=== PATIENT | female | born 1950 | race Caucasian/White ===

== ENCOUNTER 2018-01-01 09:10 | Inpatient (IN) | payer MEDICARE, OTHER ==
[~2018-01-01] VITALS: Ht 152.4 cm; Wt 68.1 kg
[2018-01-01 10:45] VITALS: BP 108/61
[2018-01-01] MEDS ORDERED: PLEASE ENTER ALLERGIES MC SCH (11:30)
[2018-01-01] MEDS ORDERED: GUAIFENESIN/DM 200-20MG, 10ML UDC PO PRN (11:30)
[2018-01-01] MEDS ORDERED: ONDANSETRON ODT 4 MG PO PRN (11:30)
[2018-01-01] MEDS ORDERED: POLYETHYLENE GLYCOL 17 GM PACKET PO PRN (11:30)
[2018-01-01] MEDS ORDERED: DOCUSATE 100 MG CAPSULE PO PRN (11:30)
[2018-01-01] MEDS ORDERED: BISACODYL 10 MG SUPP PR PRN (11:30)
[2018-01-01] MEDS ORDERED: GLUCAGON 1 MG IM PRN (12:00)
[2018-01-01] MEDS ORDERED: DEXTROSE 4 GM TAB.CHEW PO PRN (12:00)
[2018-01-01] MEDS ORDERED: DEXTROSE 50%, 50ML SYRINGE IVPush PRN (12:00)
[2018-01-01] MEDS ORDERED: BENAZEPRIL 20 MG TABLET ONE (12:48)
[2018-01-01] MEDS: ENOXAPARIN 40 MG/0.4 ML SQ SCH (12:52)
[2018-01-01] MEDS: PLEASE ENTER HEIGHT AND WEIGHT MC SCH ×2 (12:57→19:10)
[2018-01-01] MEDS: BENAZEPRIL 10 MG TABLET PO SCH (12:57)
[2018-01-01] MEDS: FUROSEMIDE 20 MG/2 ML IV SCH (14:05)
[2018-01-01] MEDS ORDERED: ALBUTEROL/IPRATROPIUM 2.5MG/0.5MG, 3 ML ONE (15:02)
[2018-01-01] MEDS: ALBUTEROL/IPRATROPIUM 2.5MG/0.5MG, 3 ML NPPB SCH ×2 (15:23→20:00)
[2018-01-01] MEDS: INSULIN LISPRO 100 UNITS/ML, PEN SQ-INSULIN SCH ×2 (18:18→20:48)
[2018-01-01 19:38] VITALS: BP 147/49
[2018-01-01] MEDS: ATORVASTATIN 10 MG TABLET PO SCH (20:47)
[2018-01-01] MEDS: LEVETIRACETAM 500 MG TABLET PO SCH (20:47)
[2018-01-01] MEDS: INSULIN GLARGINE 100 UNITS/ML, PEN SQ-INSULIN SCH (20:47)
[2018-01-01] MEDS: SODIUM CHLORIDE FLUSH 10ML SYR IVF SCH (20:50)
[2018-01-02 02:29] VITALS: BP 136/55
[2018-01-02 05:15] LABS: BASOPHILS # (AUTO) 0.02 x10^3/uL (0-0.1); BASOPHILS % (AUTO) 1 % (0-1); EOSINOPHILS # (AUTO) 0.07 x10^3/uL (0-0.4); EOSINOPHILS % (AUTO) 2 % (1-7); LYMPHOCYTES % (AUTO) 43 % (22-44); MD NO; MEAN CORPUSCULAR HEMOGLOBIN 25.8 pg (27.0-34.8); MEAN CORPUSCULAR HGB CONC 31.4 g/dL (32.4-35.8); MEAN PLATELET VOLUME 8.6 fL (7.4-10.4); MONOCYTES # (AUTO) 0.38 x10^3/uL (0.2-0.8); MONOCYTES % (AUTO) 10 % (2-9); NEUTROPHILS # (AUTO) 1.79 x10^3/uL (1.8-6.8); NEUTROPHILS % (AUTO) 45 % (42-75); PLATELET COUNT 125 x10^3/uL (130-400); RED BLOOD COUNT 4.12 x10^6/uL (3.82-5.3); RED CELL DISTRIBUTION WIDTH 24.9 % (9.6-15.2)
[2018-01-02 05:53] LABS: ALBUMIN 2.7 g/dL (3.4-5.0); ANION GAP 5 mmol/L (5-15); CALCIUM 7.9 mg/dL (8.5-10.1); CHLORIDE 104 mmol/L (98-107)
[2018-01-02 05:56] LABS: ALANINE AMINOTRANSFERASE 26 U/L (12-78); ALKALINE PHOSPHATASE 98 U/L (45-117); BILIRUBIN,TOTAL 0.4 mg/dL (0.2-1.0); CREATININE 0.62 mg/dL (0.55-1.02); TOTAL PROTEIN 5.7 g/dL (6.4-8.2)
[2018-01-02] MEDS: ASPIRIN 325 MG TABLET PO SCH (06:09)
[2018-01-02 06:36] VITALS: BP 153/62
[2018-01-02] MEDS: INSULIN LISPRO 100 UNITS/ML, PEN SQ-INSULIN SCH ×4 (07:00→22:14)
[2018-01-02] MEDS: ALBUTEROL/IPRATROPIUM 2.5MG/0.5MG, 3 ML NPPB SCH ×2 (07:00→11:00)
[2018-01-02] MEDS: FLUTICASONE/VILANTEROL 100-25MCG/INH INH SCH (09:00)
[2018-01-02] MEDS: SODIUM CHLORIDE FLUSH 10ML SYR IVF SCH ×2 (09:00→22:13)
[2018-01-02] MEDS: SPIRONOLACTONE 25 MG TABLET PO SCH (09:51)
[2018-01-02] MEDS: LEVETIRACETAM 500 MG TABLET PO SCH ×2 (09:52→22:12)
[2018-01-02] MEDS: FUROSEMIDE 20 MG/2 ML IV SCH (09:52)
[2018-01-02] MEDS: BENAZEPRIL 10 MG TABLET PO SCH (09:52)
[2018-01-02 12:03] VITALS: BP 139/59
[2018-01-02] MEDS ORDERED: ALBUTEROL/IPRATROPIUM 2.5MG/0.5MG, 3 ML NPPB PRN (14:00)
[2018-01-02] MEDS: ENOXAPARIN 40 MG/0.4 ML SQ SCH (16:20)
[2018-01-02] MEDS: methylPREDNISolone SOD SUCC 40 MG/ML IVPush SCH (20:18)
[2018-01-02 20:54] VITALS: BP 154/79
[2018-01-02] MEDS: ATORVASTATIN 10 MG TABLET PO SCH (22:13)
[2018-01-02] MEDS: INSULIN GLARGINE 100 UNITS/ML, PEN SQ-INSULIN SCH (22:14)
[2018-01-03] VITALS (8 sets, daily range): BP systolic 152–178; BP diastolic 59–84
[2018-01-03] MEDS: methylPREDNISolone SOD SUCC 40 MG/ML IVPush SCH ×4 (00:44→20:24)
[2018-01-03] MEDS: hydrALAzine 20 MG/ML, 1ML IV PRN ×2 (02:47→20:44)
[2018-01-03] MEDS: ASPIRIN 325 MG TABLET PO SCH (05:47)
[2018-01-03 05:50] LABS: ANION GAP 5 mmol/L (5-15); CALCIUM 8.4 mg/dL (8.5-10.1); CHLORIDE 99 mmol/L (98-107); CREATININE 0.74 mg/dL (0.55-1.02)
[2018-01-03 05:54] LABS: MEAN CORPUSCULAR HEMOGLOBIN 25.9 pg (27.0-34.8); MEAN CORPUSCULAR HGB CONC 31.6 g/dL (32.4-35.8); MEAN CORPUSCULAR VOLUME 82.1 fL (80-100); MEAN PLATELET VOLUME 9.7 fL (7.4-10.4); PLATELET COUNT 127 x10^3/uL (130-400); RED BLOOD COUNT 4.25 x10^6/uL (3.82-5.3); RED CELL DISTRIBUTION WIDTH 25.9 % (9.6-15.2)
[2018-01-03 06:23] LABS: MD MORPH REVIEW ONLY
[2018-01-03 06:29] LABS: BASOPHILS % (AUTO) 0 % (0-1); EOSINOPHILS # (AUTO) 0.93 x10^3/uL (0-0.4); EOSINOPHILS % (AUTO) 31 % (1-7); LYMPHOCYTES % (AUTO) 33 % (22-44); MONOCYTES # (AUTO) 0.03 x10^3/uL (0.2-0.8); MONOCYTES % (AUTO) 1 % (2-9); NEUTROPHILS # (AUTO) 1.09 x10^3/uL (1.8-6.8); NEUTROPHILS % (AUTO) 36 % (42-75)
[2018-01-03 06:30] LABS: <PLATELET ESTIMATE> ADEQUATE; <PLT MORPHOLOGY> NORMAL PLT MORPH; ANISOCYTOSIS 2+; HYPOCHROMIA 1+; MICROCYTOSIS 1+; OVALOCYTES 1+
[2018-01-03] MEDS: SODIUM CHLORIDE FLUSH 10ML SYR IVF SCH ×2 (09:00→20:25)
[2018-01-03] MEDS: SPIRONOLACTONE 25 MG TABLET PO SCH (09:04)
[2018-01-03] MEDS: FUROSEMIDE 20 MG/2 ML IV SCH (09:04)
[2018-01-03] MEDS: LEVETIRACETAM 500 MG TABLET PO SCH ×2 (09:04→20:25)
[2018-01-03] MEDS: FLUTICASONE/VILANTEROL 100-25MCG/INH INH SCH (09:05)
[2018-01-03] MEDS: INSULIN LISPRO 100 UNITS/ML, PEN SQ-INSULIN SCH ×4 (09:05→20:26)
[2018-01-03] MEDS: BENAZEPRIL 10 MG TABLET PO SCH (09:05)
[2018-01-03] MEDS: ENOXAPARIN 40 MG/0.4 ML SQ SCH (12:30)
[2018-01-03] MEDS: ATORVASTATIN 10 MG TABLET PO SCH (20:25)
[2018-01-03] MEDS: INSULIN GLARGINE 100 UNITS/ML, PEN SQ-INSULIN SCH (20:26)
[2018-01-03] MEDS ORDERED: TEMAZEPAM 15 MG CAPSULE PO ONE (22:30)
[2018-01-04 00:05] VITALS: BP 157/68
[2018-01-04] MEDS: methylPREDNISolone SOD SUCC 40 MG/ML IVPush SCH ×4 (01:30→19:33)
[2018-01-04 05:00] LABS: MEAN CORPUSCULAR HEMOGLOBIN 25.9 pg (27.0-34.8); MEAN CORPUSCULAR HGB CONC 31.5 g/dL (32.4-35.8); MEAN CORPUSCULAR VOLUME 82.3 fL (80-100); MEAN PLATELET VOLUME 9.7 fL (7.4-10.4); PLATELET COUNT 136 x10^3/uL (130-400); RED BLOOD COUNT 4.31 x10^6/uL (3.82-5.3); RED CELL DISTRIBUTION WIDTH 25.4 % (9.6-15.2)
[2018-01-04 05:09] LABS: ALANINE AMINOTRANSFERASE 28 U/L (12-78); ANION GAP 6 mmol/L (5-15); CALCIUM 8.5 mg/dL (8.5-10.1); CHLORIDE 97 mmol/L (98-107); CREATININE 0.69 mg/dL (0.55-1.02)
[2018-01-04 05:11] LABS: ALKALINE PHOSPHATASE 104 U/L (45-117); BILIRUBIN,TOTAL 0.4 mg/dL (0.2-1.0); TOTAL PROTEIN 6.3 g/dL (6.4-8.2)
[2018-01-04] MEDS: ASPIRIN 325 MG TABLET PO SCH (05:52)
[2018-01-04 05:54] LABS: BASOPHILS % (AUTO) 0 % (0-1); EOSINOPHILS # (AUTO) 0.01 x10^3/uL (0-0.4); EOSINOPHILS % (AUTO) 0 % (1-7); LYMPHOCYTES # (AUTO) 0.89 x10^3/uL (1-3.4); LYMPHOCYTES % (AUTO) 21 % (22-44); MD SCAN; MONOCYTES # (AUTO) 0.11 x10^3/uL (0.2-0.8); MONOCYTES % (AUTO) 3 % (2-9); NEUTROPHILS # (AUTO) 3.15 x10^3/uL (1.8-6.8); NEUTROPHILS % (AUTO) 76 % (42-75)
[2018-01-04] MEDS: INSULIN LISPRO 100 UNITS/ML, PEN SQ-INSULIN SCH ×4 (06:27→20:44)
[2018-01-04] MEDS: SODIUM CHLORIDE FLUSH 10ML SYR IVF SCH ×2 (09:00→20:31)
[2018-01-04] MEDS: LEVETIRACETAM 500 MG TABLET PO SCH ×2 (09:07→20:30)
[2018-01-04] MEDS: SPIRONOLACTONE 25 MG TABLET PO SCH (09:07)
[2018-01-04] MEDS: BENAZEPRIL 10 MG TABLET PO SCH (09:07)
[2018-01-04] MEDS: FLUTICASONE/VILANTEROL 100-25MCG/INH INH SCH (09:08)
[2018-01-04] MEDS: FUROSEMIDE 20 MG/2 ML IV SCH (09:08)
[2018-01-04] MEDS ORDERED: REMIFENTANIL 1 MG ONE (10:28)
[2018-01-04] MEDS ORDERED: FENTANYL PF 250 MCG/5ML ONE (11:57)
[2018-01-04] MEDS ORDERED: PROTAMINE SULFATE 10 MG/ML, 5ML ONE (11:58)
[2018-01-04] MEDS ORDERED: LIDOCAINE/PF 1%, 30ML ONE (11:58)
[2018-01-04] MEDS ORDERED: EPINEPHRINE 1 MG/ML, 1ML ONE (11:58)
[2018-01-04] MEDS ORDERED: BACITRACIN 50,000 UNIT ONE (11:58)
[2018-01-04] MEDS ORDERED: BUPIVACAINE/PF 0.5% ONE (11:58)
[2018-01-04] MEDS ORDERED: HEPARIN 1,000 UNITS/ML, 10ML ONE (11:58)
[2018-01-04] MEDS ORDERED: PAPAVERINE 30 MG/ML, 2ML ONE (11:58)
[2018-01-04] MEDS ORDERED: INSULIN SINGLE DOSE, ER SQ-INSULIN ONE (12:22)
[2018-01-04] MEDS: ENOXAPARIN 40 MG/0.4 ML SQ SCH (12:30)
[2018-01-04] MEDS ORDERED: CEFAZOLIN 1,000 MG ONE (12:43)
[2018-01-04] MEDS ORDERED: PROPOFOL 10 MG/ML, 20ML ONE (12:43)
[2018-01-04] MEDS ORDERED: ONDANSETRON 2MG/ML, 2ML ONE (12:43)
[2018-01-04] MEDS ORDERED: DEXAMETHASONE 4 MG/ML, 1ML ONE (12:43)
[2018-01-04] MEDS ORDERED: SUGAMMADEX 200 MG/2 ML IVPush ONE (14:01)
[2018-01-04] MEDS ORDERED: FENTANYL PF 100 MCG/2ML ONE (15:00)
[2018-01-04] MEDS ORDERED: OXYcodone 5 MG/5 ML ORAL.SOL UDC ONE (15:00)
[2018-01-04] MEDS: FENTANYL PF 100 MCG/2ML IV PRN ×3 (15:02→15:40)
[2018-01-04] MEDS ORDERED: ALBUTEROL/IPRATROPIUM 2.5MG/0.5MG, 3 ML ONE (15:29)
[2018-01-04] MEDS ORDERED: LABETALOL 5MG/ML, 20ML IV PRN (15:30)
[2018-01-04] MEDS ORDERED: ONDANSETRON 2MG/ML, 2ML IV PRN (15:30)
[2018-01-04] MEDS ORDERED: hydrALAzine 20 MG/ML, 1ML IV PRN (15:30)
[2018-01-04] MEDS ORDERED: HYDROmorphone 2 MG/ML, 1ML IV PRN (15:30)
[2018-01-04] MEDS ORDERED: OXYcodone 5 MG/5 ML ORAL.SOL UDC PO PRN (15:30)
[2018-01-04] MEDS ORDERED: PROMETHAZINE 25 MG/ML, 1ML IV PRN (15:30)
[2018-01-04] MEDS ORDERED: ACETAMINOPHEN 325 MG TABLET PO PRN (15:30)
[2018-01-04] MEDS ORDERED: PHENYLEPHRINE 10 MG in DEXTROSE 5% 249 ML IV SCH (18:00)
[2018-01-04] MEDS ORDERED: NITROPRUSSIDE 50 MG in DEXTROSE 5% 248 ML IV SCH (18:00)
[2018-01-04] MEDS ORDERED: morphine SULFATE 10 MG/ML, 1ML IV PRN (18:00)
[2018-01-04 19:30] VITALS: BP 134/63
[2018-01-04] MEDS: ATORVASTATIN 10 MG TABLET PO SCH (20:31)
[2018-01-04] MEDS: INSULIN GLARGINE 100 UNITS/ML, PEN SQ-INSULIN SCH (20:45)
[2018-01-04] MEDS: OXYcodone IR 5MG TABLET PO PRN (22:36)
[2018-01-05] MEDS: methylPREDNISolone SOD SUCC 40 MG/ML IVPush SCH ×2 (01:32→06:33)
[2018-01-05 07:56] VITALS: BP 137/66
[2018-01-05] MEDS: INSULIN LISPRO 100 UNITS/ML, PEN SQ-INSULIN SCH ×4 (07:58→21:25)
[2018-01-05 08:45] LABS: MD YES; MEAN CORPUSCULAR HEMOGLOBIN 25.5 pg (27.0-34.8); MEAN CORPUSCULAR VOLUME 82.3 fL (80-100); MEAN PLATELET VOLUME 9.5 fL (7.4-10.4); PLATELET COUNT 144 x10^3/uL (130-400); RED BLOOD COUNT 4.25 x10^6/uL (3.82-5.3); RED CELL DISTRIBUTION WIDTH 25.3 % (9.6-15.2)
[2018-01-05 08:50] LABS: ALANINE AMINOTRANSFERASE 27 U/L (12-78); ALBUMIN 3.1 g/dL (3.4-5.0); ANION GAP 6 mmol/L (5-15); CALCIUM 8.6 mg/dL (8.5-10.1); CHLORIDE 97 mmol/L (98-107); CREATININE 0.74 mg/dL (0.55-1.02)
[2018-01-05] MEDS: BENAZEPRIL 10 MG TABLET PO SCH (08:51)
[2018-01-05] MEDS: SPIRONOLACTONE 25 MG TABLET PO SCH (08:51)
[2018-01-05] MEDS: LEVETIRACETAM 500 MG TABLET PO SCH ×2 (08:51→20:47)
[2018-01-05] MEDS: FLUTICASONE/VILANTEROL 100-25MCG/INH INH SCH (08:51)
[2018-01-05 08:52] LABS: ALKALINE PHOSPHATASE 83 U/L (45-117); BILIRUBIN,TOTAL 0.4 mg/dL (0.2-1.0); TOTAL PROTEIN 6.1 g/dL (6.4-8.2)
[2018-01-05] MEDS: FUROSEMIDE 20 MG/2 ML IV SCH (08:52)
[2018-01-05] MEDS: SODIUM CHLORIDE FLUSH 10ML SYR IVF SCH ×2 (08:52→20:47)
[2018-01-05 09:11] LABS: LYMPHS% (MANUAL) 12 % (22-44); MONOS#(MANUAL) 0.05 x10^3/uL (0.3-2.7); MONOS% (MANUAL) 1 % (2-9); SEG#(MANUAL) 4.35 x10^3/uL (1.8-6.8); SEGS% (MANUAL) 87 % (42-75)
[2018-01-05 09:12] LABS: <PLATELET ESTIMATE> ADEQUATE; <PLT MORPHOLOGY> NORMAL PLT MORPH; ANISOCYTOSIS 2+; MICROCYTOSIS 1+; OVALOCYTES 1+
[2018-01-05] MEDS: FUROSEMIDE 20 MG TABLET PO SCH (12:30)
[2018-01-05 13:27] VITALS: BP 146/53
[2018-01-05] MEDS: ENOXAPARIN 40 MG/0.4 ML SQ SCH (14:59)
[2018-01-05 18:43] VITALS: BP 165/64
[2018-01-05] MEDS: ATORVASTATIN 10 MG TABLET PO SCH (20:47)
[2018-01-05] MEDS: LABETALOL 5MG/ML, 20ML IVPush PRN (20:49)
[2018-01-05] MEDS: INSULIN GLARGINE 100 UNITS/ML, PEN SQ-INSULIN SCH (21:26)
[2018-01-06] VITALS (8 sets, daily range): BP systolic 144–190; BP diastolic 49–76
[2018-01-06 04:23] LABS: MEAN CORPUSCULAR HEMOGLOBIN 26.1 pg (27.0-34.8); MEAN CORPUSCULAR HGB CONC 31.6 g/dL (32.4-35.8); MEAN CORPUSCULAR VOLUME 82.5 fL (80-100); MEAN PLATELET VOLUME 8.9 fL (7.4-10.4); PLATELET COUNT 139 x10^3/uL (130-400); RED BLOOD COUNT 4.04 x10^6/uL (3.82-5.3); RED CELL DISTRIBUTION WIDTH 25.6 % (9.6-15.2)
[2018-01-06 04:34] LABS: ANION GAP 4 mmol/L (5-15); CALCIUM 8.1 mg/dL (8.5-10.1); CHLORIDE 100 mmol/L (98-107)
[2018-01-06 04:35] LABS: BASOPHILS % (AUTO) 0 % (0-1); CREATININE 0.69 mg/dL (0.55-1.02); EOSINOPHILS # (AUTO) 0.02 x10^3/uL (0-0.4); EOSINOPHILS % (AUTO) 0 % (1-7); LYMPHOCYTES # (AUTO) 1.34 x10^3/uL (1-3.4); LYMPHOCYTES % (AUTO) 24 % (22-44); MD SCAN; MONOCYTES # (AUTO) 0.48 x10^3/uL (0.2-0.8); MONOCYTES % (AUTO) 9 % (2-9); NEUTROPHILS # (AUTO) 3.66 x10^3/uL (1.8-6.8); NEUTROPHILS % (AUTO) 67 % (42-75)
[2018-01-06] MEDS: INSULIN LISPRO 100 UNITS/ML, PEN SQ-INSULIN SCH ×4 (05:55→20:35)
[2018-01-06] MEDS: FLUTICASONE/VILANTEROL 100-25MCG/INH INH SCH (08:27)
[2018-01-06] MEDS: INSULIN GLARGINE 100 UNITS/ML, PEN SQ-INSULIN SCH ×2 (08:29→20:36)
[2018-01-06] MEDS: BENAZEPRIL 10 MG TABLET PO SCH (08:29)
[2018-01-06] MEDS: FUROSEMIDE 20 MG TABLET PO SCH (08:30)
[2018-01-06] MEDS: SPIRONOLACTONE 25 MG TABLET PO SCH (08:30)
[2018-01-06] MEDS: SODIUM CHLORIDE FLUSH 10ML SYR IVF SCH ×2 (08:30→21:11)
[2018-01-06] MEDS: LEVETIRACETAM 500 MG TABLET PO SCH ×2 (08:33→20:34)
[2018-01-06] MEDS: ENOXAPARIN 40 MG/0.4 ML SQ SCH (14:50)
[2018-01-06] MEDS ORDERED: INSULIN LISPRO 100 UNITS/ML, PEN SQ-INSULIN SCH (17:00)
[2018-01-06] MEDS: ATORVASTATIN 10 MG TABLET PO SCH (20:34)
[2018-01-06] MEDS: OXYcodone IR 5MG TABLET PO PRN (21:17)
[2018-01-06] MEDS: LABETALOL 5MG/ML, 20ML IVPush PRN ×2 (22:50→23:22)
[2018-01-07] MEDS: hydrALAzine 20 MG/ML, 1ML IV PRN (00:02)
[2018-01-07 00:33] VITALS: BP 155/65
[2018-01-07 01:29] VITALS: BP 144/65
[2018-01-07 05:05] LABS: MEAN CORPUSCULAR HEMOGLOBIN 26.3 pg (27.0-34.8); MEAN CORPUSCULAR HGB CONC 31.4 g/dL (32.4-35.8); MEAN CORPUSCULAR VOLUME 83.8 fL (80-100); MEAN PLATELET VOLUME 8.8 fL (7.4-10.4); PLATELET COUNT 141 x10^3/uL (130-400); RED BLOOD COUNT 4.15 x10^6/uL (3.82-5.3); RED CELL DISTRIBUTION WIDTH 25.7 % (9.6-15.2)
[2018-01-07 05:15] LABS: ANION GAP 7 mmol/L (5-15); CHLORIDE 99 mmol/L (98-107); CREATININE 0.58 mg/dL (0.55-1.02)
[2018-01-07 06:20] LABS: BASOPHILS % (AUTO) 0 % (0-1); EOSINOPHILS # (AUTO) 0.03 x10^3/uL (0-0.4); EOSINOPHILS % (AUTO) 1 % (1-7); LYMPHOCYTES # (AUTO) 1.47 x10^3/uL (1-3.4); LYMPHOCYTES % (AUTO) 29 % (22-44); MD SCAN; MONOCYTES # (AUTO) 0.47 x10^3/uL (0.2-0.8); MONOCYTES % (AUTO) 9 % (2-9); NEUTROPHILS # (AUTO) 3.14 x10^3/uL (1.8-6.8); NEUTROPHILS % (AUTO) 61 % (42-75)
[2018-01-07] MEDS: INSULIN LISPRO 100 UNITS/ML, PEN SQ-INSULIN SCH ×3 (06:21→15:57)
[2018-01-07] MEDS: SODIUM CHLORIDE FLUSH 10ML SYR IVF SCH (09:00)
[2018-01-07] MEDS ORDERED: BENAZEPRIL 20 MG TABLET PO SCH (09:00)
[2018-01-07 09:13] VITALS: BP 153/67
[2018-01-07] MEDS ORDERED: POTASSIUM CHLORIDE 20 MEQ TAB.ER.PRT PO ONE (09:30)
[2018-01-07] MEDS ORDERED: FLUT1AER INH (09:33)
[2018-01-07] MEDS ORDERED: LEVE500T53 PO (09:33)
[2018-01-07] MEDS: FLUTICASONE/VILANTEROL 100-25MCG/INH INH SCH (09:33)
[2018-01-07] MEDS ORDERED: ATOR10TA9 PO (09:33)
[2018-01-07] MEDS ORDERED: INSU100I13 SQ-INSULIN (09:33)
[2018-01-07] MEDS ORDERED: BENA10TA4 PO (09:33)
[2018-01-07] MEDS ORDERED: PRED20TA PO (09:33)
[2018-01-07] MEDS ORDERED: IPRA3AMP30 NPPB (09:33)
[2018-01-07] MEDS ORDERED: FURO20TA3 PO (09:33)
[2018-01-07] MEDS ORDERED: SPIR25TA PO (09:33)
[2018-01-07] MEDS: INSULIN GLARGINE 100 UNITS/ML, PEN SQ-INSULIN SCH (09:34)
[2018-01-07] MEDS: FUROSEMIDE 20 MG TABLET PO SCH (09:34)
[2018-01-07] MEDS: LEVETIRACETAM 500 MG TABLET PO SCH (09:34)
[2018-01-07] MEDS: SPIRONOLACTONE 25 MG TABLET PO SCH (09:34)
[2018-01-07 13:00] VITALS: BP 117/53
[2018-01-07] MEDS: ENOXAPARIN 40 MG/0.4 ML SQ SCH (15:00)
[2018-01-08] MEDS ORDERED: BENAZEPRIL 10 MG TABLET PO SCH (09:00)
== END 2018-01-07 17:11 | disposition home health service (06) | DRG 37 ==
LOC: 4WST 10:11 → 4EST 17:43 → 4NOR 01-04 17:18
PROVIDERS: ADMIT Internal Medicine; ATTEND Internal Medicine
PROC: 03CK0Z6 (ICD-10-PCS; 2018-01-04)
PROC: 03CH0Z6 (ICD-10-PCS; principal; 2018-01-04 12:00)
DX: I63.231 Cerebral infarction due to unspecified occlusion or stenosis of right carotid arteries (principal); I50.33 Acute on chronic diastolic (congestive) heart failure; J96.21 Acute and chronic respiratory failure with hypoxia; S02.81XA Fracture of other specified skull and facial bones, right side, initial encounter for closed fracture; D61.818 Other pancytopenia; J44.1 Chronic obstructive pulmonary disease with (acute) exacerbation; J98.11 Atelectasis; L03.116 Cellulitis of left lower limb; R18.8 Other ascites; E11.65 Type 2 diabetes mellitus with hyperglycemia; E78.5 Hyperlipidemia, unspecified; F03.90 Unspecified dementia, unspecified severity, without behavioral disturbance, psychotic disturbance, mood disturbance, and anxiety; G40.909 Epilepsy, unspecified, not intractable, without status epilepticus; I11.0 Hypertensive heart disease with heart failure; K74.60 Unspecified cirrhosis of liver; R13.10 Dysphagia, unspecified; Z87.891 Personal history of nicotine dependence; Z91.19 Patient's noncompliance with other medical treatment and regimen; Z99.3 Dependence on wheelchair; Z99.81 Dependence on supplemental oxygen; W18.30XA Fall on same level, unspecified, initial encounter; Y93.89 Activity, other specified; Y92.89 Other specified places as the place of occurrence of the external cause; Y99.8 Other external cause status
CPT/HCPCS: 36415; 71045; 71250; 74230; 80048; 80053; 82947; 82962; 83735; 84100; 85025; 93005; 93306; 94640; 95819; 95938; 95941; C1729; G0378; J0171; J0690; J1100; J1644; J1650; J2405; J2704; J2720; J3010; J3490; J7620; Q0162; 92523-GN; C1768; J0360; J1815; J1940; J2440; J2920; J7512

== ENCOUNTER 2018-07-26 15:41 | Inpatient (IN) | payer MEDICARE ==
[~2018-07-26] VITALS: Ht 162.6 cm; Wt 59.8 kg
[~2018-07-26 15:41] MED LIST: ATOR10TA9 PO; BENA10TA4 PO; ETOMIDATE 20 MG/10 ML ONE; FLUT1AER INH; FURO20TA3 PO; INSU100I13 SQ-INSULIN; IPRA3AMP30 NPPB; LEVE500T53 PO; MIDAZOLAM 1 MG/ML, 5ML ONE; PRED20TA PO; PROPOFOL 10 MG/ML, 100ML IV ONE; SPIR25TA PO; SUCCINYLCHOLINE 20 MG/ML, 10ML ONE
--- NOTE | 2018-07-26 15:45 | NUR ---
PT [facility] [facility] FOR SUDDEN ONSET OF AMS WITH POSSIBLE SEIZURE ACTIVITY. ON ARRIVAL HERE PT WAS CONVERSING WITH DR. GELLER WITH INTERMITTENT CLARITY OF SPEECH BUT BUT INAPPROPRIATE SOUNDS AT TIME. KEVINSA REPORTED THAT ON SCENE PT SLUMPED OVER TO THE LEFT. KEVINSA REPORTS 911 CALL WAS MADE AT 1504. FAMILY EN ROUTE TO HOSPITAL AND LIMITED HX GAINED.
--- NOTE | 2018-07-26 15:59 | NUR ---
[address] VILLEGAS NOTIFIED
[2018-07-26 16:28] LABS: BASOPHILS # (AUTO) 0.01 x10^3/uL (0-0.1); BASOPHILS % (AUTO) 0 % (0-1); EOSINOPHILS % (AUTO) 0 % (1-7); LYMPHOCYTES # (AUTO) 1.55 x10^3/uL (1-3.4); LYMPHOCYTES % (AUTO) 13 % (22-44); MD NO; MEAN CORPUSCULAR HGB CONC 31.9 g/dL (32.4-35.8); MEAN CORPUSCULAR VOLUME 93.9 fL (80-100); MEAN PLATELET VOLUME 8.7 fL (7.4-10.4); MONOCYTES # (AUTO) 0.43 x10^3/uL (0.2-0.8); MONOCYTES % (AUTO) 4 % (2-9); NEUTROPHILS # (AUTO) 10.22 x10^3/uL (1.8-6.8); NEUTROPHILS % (AUTO) 84 % (42-75); PLATELET COUNT 173 x10^3/uL (130-400); RED BLOOD COUNT 5.21 x10^6/uL (3.82-5.3); RED CELL DISTRIBUTION WIDTH 18.3 % (9.6-15.2)
[2018-07-26] MEDS ORDERED: OMNIPAQUE 350 MG/ML, 100ML BOTTLE ONE (16:29)
[2018-07-26] MEDS ORDERED: PROPOFOL 100 ML IV PRN (16:30)
[2018-07-26] MEDS ORDERED: SUCCINYLCHOLINE 20 MG/ML, 10ML IVPush ONE (16:30)
[2018-07-26] MEDS ORDERED: ETOMIDATE 20 MG/10 ML IVPush ONE (16:30)
[2018-07-26 16:37] LABS: INTERNATIONAL NORMALIZED RATIO 1.03 (0.93-1.1); PROTHROMBIN TIME 10.8 Seconds (9.6-11.5)
--- NOTE | 2018-07-26 16:50 | NUR ---
FARIHA RT AT [facility]. PT TO HAVE MRI BUT PER RT THERE IS NOT STAFF TO TAKE PT TO HAVE MRI DONE.
[2018-07-26] MEDS ORDERED: ALTEPLASE 5 MG in SYRINGE 1 EA IVPush ONE (17:00)
[2018-07-26] MEDS ORDERED: ALTEPLASE IV ONE (17:00)
--- NOTE | 2018-07-26 17:05 | NUR ---
PT TEMP 102.0 AND CLIMBING FROM TEMP PROBE AGEE. DR. GELLER AWARE. PER AT BEDSIDE PT WAS AT MD OFFICE WITH OXYGEN CONETRATOR NOT WORKING, PT SATS WENT DOWN TO 50% ANF THEN PT COLLAPSED. DR. GELLER AWARE.
--- NOTE | 2018-07-26 17:15 | NUR ---
TPA TO BE HELD. LAB AT BEDSIDE FOR BLOOD CULTURES X 2.
[2018-07-26] MEDS ORDERED: CEFTRIAXONE PMX 1GM/50ML 50 ML ONE (17:27)
[2018-07-26] MEDS ORDERED: ACETAMINOPHEN 650 MG SUPP ONE (17:27)
[2018-07-26] MEDS ORDERED: ACETAMINOPHEN 325 MG SUPP ONE (17:29)
[2018-07-26] MEDS ORDERED: ACETAMINOPHEN 650 MG SUPP PR PRN (17:30)
--- NOTE | 2018-07-26 17:45 | NUR ---
RT RAMSEY AT BEDSIDE TO HELP TRANSPORT PT TO MRI. AT BEDSIDE TELLS DR. VILLEGAS AT BEDSIDE THAT HER SYMPTOMS BEGAN AT ABOUT [phone].
--- NOTE | 2018-07-26 17:50 | NUR ---
PT TO MRI. REPORT TO KAREN Frausto RN.
[2018-07-26] MEDS ORDERED: ACETAMINOPHEN 500 MG TABLET PO ONE (18:00)
[2018-07-26] MEDS ORDERED: CEFTRIAXONE PMX 1GM/50ML 50 ML IVPB ONE (18:00)
--- NOTE | 2018-07-26 18:20 | NUR ---
PT STILL IN MRI.
--- NOTE | 2018-07-26 19:01 | NUR ---
PT BACK FROM MRI. LAB AT BEDSIDE FOR ABG. PER DR. VILLEGAS MRI WAS NEGATIVE FOR ISCHEMIC STROKE. WENT HOME TAKING PT'S BELONGINGS INCLUDING HER DENTURES AND HER GLASSES.
[2018-07-26] MEDS ORDERED: QUET25TA5 PO (20:20)
[2018-07-26] MEDS ORDERED: INSULIN REGULAR SQ (20:20)
[2018-07-26] MEDS ORDERED: ASPI-496 PO (20:20)
[2018-07-26] MEDS ORDERED: FAMO-79 PO (20:20)
[2018-07-26] MEDS ORDERED: NYST1POW31 TP (20:20)
[2018-07-26] MEDS ORDERED: VANCOMYCIN PMX 1GM/200ML 200 ML IV ONE ×2 (21:00→22:00)
[2018-07-26] MEDS ORDERED: VANCOMYCIN PER PHARMACY MC PRN (21:00)
[2018-07-26 21:02] LABS: MICROSCOPIC INDICATED
[2018-07-26 21:12] LABS: CULTURE INDICATED? NO
[2018-07-26] MEDS ORDERED: PHARMACOKINETIC CONSULTATION MC ONE (21:30)
[2018-07-26] MEDS ORDERED: PHARMACOKINETIC MONITORING MC PRN (21:30)
[2018-07-26] MEDS ORDERED: MIDAZOLAM 1 MG/ML, 2ML IVPush ONE (22:00)
[2018-07-26] MEDS ORDERED: FENTANYL PF 100 MCG/2ML IVPush ONE (22:00)
[2018-07-26] MEDS ORDERED: GLUCAGON 1 MG IM PRN (22:00)
[2018-07-26] MEDS ORDERED: LACTULOSE 20 GM/30 ML UDC NG PRN (22:00)
[2018-07-26] MEDS ORDERED: PHARMACY MAY ADJ FOR RENAL FX MC SCH (22:00)
[2018-07-26] MEDS ORDERED: LIDOCAINE-MPF 1%, 2ML ENDO PRN (22:00)
[2018-07-26] MEDS ORDERED: DEXTROSE 50%, 50ML SYRINGE IVPush PRN (22:00)
[2018-07-26] MEDS ORDERED: SENNA/DOCUSATE TABLET NG PRN (22:00)
[2018-07-26] MEDS ORDERED: DEXTROSE 4 GM TAB.CHEW PO PRN (22:00)
[2018-07-26] MEDS ORDERED: SENNA 176 MG/5 ML ORAL SOL NG PRN (22:00)
[2018-07-26] MEDS ORDERED: CEFTRIAXONE PMX 2GM/50ML 50 ML IV SCH (22:00)
[2018-07-26] MEDS ORDERED: VECURONIUM 10 MG IVPush ONE (22:00)
[2018-07-26] MEDS ORDERED: BISACODYL 10 MG SUPP PR PRN (22:00)
[2018-07-26] MEDS: ALBUTEROL/IPRATROPIUM 2.5MG/0.5MG, 3 ML INLINE SCH (22:00)
[2018-07-26] MEDS ORDERED: VANCOMYCIN 1,800 MG in SODIUM CHLORIDE 0.9% 250 ML IV ONE (22:00)
[2018-07-26] MEDS: SODIUM CHLORIDE 0.9% 1,000 ML IV SCH (22:00)
[2018-07-26] MEDS ORDERED: VECURONIUM 10 MG ONE (22:10)
[2018-07-26] MEDS ORDERED: FENTANYL PF 100 MCG/2ML ONE (22:10)
[2018-07-26] MEDS ORDERED: MIDAZOLAM 1 MG/ML, 2ML ONE (22:10)
[2018-07-26] MEDS: LEVETIRACETAM 500 MG in SODIUM CHLORIDE 0.9% 100 ML IV SCH (22:48)
[2018-07-26] MEDS: CEFTRIAXONE PMX 2GM/50ML 50 ML IV SCH (23:06)
[2018-07-26 23:25] LABS: GLUCOSE, CSF 65 mg/dL (40-80); TOTAL PROTEIN,CSF 43 mg/dL (15-45)
[2018-07-26] MEDS: DEXAMETHASONE 4 MG/ML, 1ML IVPush SCH (23:25)
[2018-07-26] MEDS: ACYCLOVIR 900 MG in SODIUM CHLORIDE 0.9% 250 ML IV SCH (23:25)
[2018-07-26] MEDS: FAMOTIDINE 20 MG/2 ML IV SCH (23:25)
[2018-07-26 23:37] LABS: MEAN CORPUSCULAR HEMOGLOBIN 30.1 pg (27.0-34.8); MEAN CORPUSCULAR HGB CONC 32.5 g/dL (32.4-35.8); MEAN CORPUSCULAR VOLUME 92.8 fL (80-100); MEAN PLATELET VOLUME 8.2 fL (7.4-10.4); PLATELET COUNT 141 x10^3/uL (130-400); RED BLOOD COUNT 4.43 x10^6/uL (3.82-5.3); RED CELL DISTRIBUTION WIDTH 18.3 % (9.6-15.2)
[2018-07-26 23:40] LABS: INTERNATIONAL NORMALIZED RATIO 1.12 (0.93-1.1); PROTHROMBIN TIME 11.7 Seconds (9.6-11.5)
[2018-07-26 23:41] LABS: ANION GAP 7 mmol/L (5-15); CALCIUM 7.9 mg/dL (8.5-10.1); CHLORIDE 101 mmol/L (98-107); CREATININE 0.73 mg/dL (0.55-1.02); HCT (SEDRATE) 41.1 % (34.6-47.8); TRIGLYCERIDES 90 mg/dL (50-200)
[2018-07-26 23:46] LABS: TROPONIN I 0.534 ng/mL (0.000-0.045)
[2018-07-27] MEDS ORDERED: POTASSIUM CHLORIDE 40 MEQ in SODIUM CHLORIDE 0.9% 500 ML IV ONE (00:30)
[2018-07-27] MEDS ORDERED: POTASSIUM CHLORIDE 10% 40 MEQ/30 ML UDC PO ONE (00:30)
[2018-07-27] MEDS ORDERED: CALCIUM GLUCONATE 4.6 MEQ in SODIUM CHLORIDE 0.9% 50 ML IV ONE (00:30)
[2018-07-27 01:10] LABS: ALBUMIN 2.5 g/dL (3.4-5.0); BILIRUBIN, DIRECT 0.1 mg/dL (0.1-0.2)
[2018-07-27 01:13] LABS: BILIRUBIN,INDIRECT 0.2 mg/dL (0.0-2.0); BILIRUBIN,TOTAL 0.3 mg/dL (0.2-1.0); TOTAL PROTEIN 5.7 g/dL (6.4-8.2)
[2018-07-27] MEDS: ALBUTEROL/IPRATROPIUM 2.5MG/0.5MG, 3 ML INLINE SCH ×6 (02:48→22:00)
[2018-07-27] MEDS: PROPOFOL 100 ML IV PRN ×2 (02:59→16:26)
[2018-07-27] MEDS: DEXAMETHASONE 4 MG/ML, 1ML IVPush SCH (03:36)
[2018-07-27 04:18] LABS: BASOPHILS # (AUTO) 0.01 x10^3/uL (0-0.1); BASOPHILS % (AUTO) 0 % (0-1); EOSINOPHILS # (AUTO) 0.01 x10^3/uL (0-0.4); EOSINOPHILS % (AUTO) 0 % (1-7); LYMPHOCYTES # (AUTO) 0.88 x10^3/uL (1-3.4); LYMPHOCYTES % (AUTO) 10 % (22-44); MD NO; MEAN CORPUSCULAR HGB CONC 32.1 g/dL (32.4-35.8); MEAN CORPUSCULAR VOLUME 93.5 fL (80-100); MEAN PLATELET VOLUME 8.6 fL (7.4-10.4); MONOCYTES # (AUTO) 0.13 x10^3/uL (0.2-0.8); MONOCYTES % (AUTO) 2 % (2-9); NEUTROPHILS # (AUTO) 7.47 x10^3/uL (1.8-6.8); NEUTROPHILS % (AUTO) 88 % (42-75); PLATELET COUNT 133 x10^3/uL (130-400); RED BLOOD COUNT 4.32 x10^6/uL (3.82-5.3); RED CELL DISTRIBUTION WIDTH 18.8 % (9.6-15.2)
[2018-07-27 04:26] LABS: ALBUMIN 2.4 g/dL (3.4-5.0); ANION GAP 6 mmol/L (5-15); CALCIUM 7.8 mg/dL (8.5-10.1); CHLORIDE 105 mmol/L (98-107)
[2018-07-27 04:32] LABS: ALANINE AMINOTRANSFERASE 17 U/L (12-78); ALKALINE PHOSPHATASE 73 U/L (45-117); BILIRUBIN,TOTAL 0.6 mg/dL (0.2-1.0); TOTAL PROTEIN 5.5 g/dL (6.4-8.2); TROPONIN I 0.308 ng/mL (0.000-0.045)
[2018-07-27 05:00] VITALS: BP 135/51
[2018-07-27] MEDS: INSULIN LISPRO 100 UNITS/ML, PEN SQ-INSULIN SCH ×4 (05:23→23:28)
[2018-07-27] MEDS ORDERED: INSULIN LISPRO 100 UNITS/ML, PEN SQ-INSULIN SCH (07:00)
[2018-07-27] MEDS: CEFTRIAXONE PMX 2GM/50ML 50 ML IV SCH (08:55)
[2018-07-27] MEDS: FAMOTIDINE 20 MG/2 ML IV SCH ×2 (09:29→23:22)
[2018-07-27] MEDS: LEVETIRACETAM 500 MG in SODIUM CHLORIDE 0.9% 100 ML IV SCH ×2 (09:29→22:00)
[2018-07-27] MEDS ORDERED: VANCOMYCIN 1,300 MG in SODIUM CHLORIDE 0.9% 250 ML IV SCH (10:00)
[2018-07-27] MEDS: DOXYCYCLINE 100 MG in DEXTROSE 5% 250 ML IV SCH ×2 (10:19→22:02)
[2018-07-27] MEDS: ACYCLOVIR 900 MG in SODIUM CHLORIDE 0.9% 250 ML IV SCH ×2 (11:24→23:23)
[2018-07-27] MEDS: ENOXAPARIN 40 MG/0.4 ML SQ SCH (11:24)
[2018-07-27] MEDS: SODIUM CHLORIDE FLUSH 10ML SYR IVF SCH ×2 (11:25→22:00)
[2018-07-27 11:27] LABS: MEAN CORPUSCULAR HGB CONC 32.1 g/dL (32.4-35.8); MEAN CORPUSCULAR VOLUME 93.6 fL (80-100); MEAN PLATELET VOLUME 8.5 fL (7.4-10.4); PLATELET COUNT 121 x10^3/uL (130-400); RED BLOOD COUNT 4.33 x10^6/uL (3.82-5.3); RED CELL DISTRIBUTION WIDTH 18.6 % (9.6-15.2)
[2018-07-27] MEDS ORDERED: HYDR-3245 PO (11:50)
[2018-07-27] MEDS ORDERED: CITA20TA6 PO (11:50)
[2018-07-27] MEDS ORDERED: FURO20TA3 PO (11:50)
[2018-07-27] MEDS ORDERED: SIMV20TA3 PO (11:50)
[2018-07-27] MEDS ORDERED: HYOS0.1281 SL (11:50)
[2018-07-27] MEDS ORDERED: GLIP10TA24 PO (11:50)
[2018-07-27] MEDS ORDERED: INSU100V13 SQ (11:51)
[2018-07-27 15:49] LABS: MEAN CORPUSCULAR VOLUME 93.6 fL (80-100); MEAN PLATELET VOLUME 8.5 fL (7.4-10.4); PLATELET COUNT 140 x10^3/uL (130-400); RED BLOOD COUNT 4.29 x10^6/uL (3.82-5.3); RED CELL DISTRIBUTION WIDTH 18.8 % (9.6-15.2)
--- NOTE | 2018-07-27 15:51 | NUR ---
TF Recommendations if Needed: Promote ON propofol full goal 60 ml/hr OFF propofol full goal 65 ml/hr
[2018-07-27] MEDS: SODIUM CHLORIDE 0.9% 1,000 ML IV SCH (18:20)
[2018-07-27 21:33] LABS: MEAN CORPUSCULAR HEMOGLOBIN 29.9 pg (27.0-34.8); MEAN CORPUSCULAR HGB CONC 31.9 g/dL (32.4-35.8); MEAN CORPUSCULAR VOLUME 93.7 fL (80-100); MEAN PLATELET VOLUME 8.1 fL (7.4-10.4); PLATELET COUNT 145 x10^3/uL (130-400); RED BLOOD COUNT 4.26 x10^6/uL (3.82-5.3); RED CELL DISTRIBUTION WIDTH 18.3 % (9.6-15.2)
[2018-07-28] MEDS: PROPOFOL 100 ML IV PRN ×4 (00:12→21:36)
[2018-07-28] MEDS: ALBUTEROL/IPRATROPIUM 2.5MG/0.5MG, 3 ML INLINE SCH ×6 (02:00→22:36)
[2018-07-28] MEDS ORDERED: VANCOMYCIN 1,200 MG in SODIUM CHLORIDE 0.9% 250 ML IV SCH (04:00)
[2018-07-28 04:34] LABS: BASOPHILS # (AUTO) 0.03 x10^3/uL (0-0.1); BASOPHILS % (AUTO) 0 % (0-1); EOSINOPHILS # (AUTO) 0.01 x10^3/uL (0-0.4); EOSINOPHILS % (AUTO) 0 % (1-7); LYMPHOCYTES # (AUTO) 1.11 x10^3/uL (1-3.4); LYMPHOCYTES % (AUTO) 13 % (22-44); MD NO; MEAN CORPUSCULAR HEMOGLOBIN 30.1 pg (27.0-34.8); MEAN CORPUSCULAR HGB CONC 32.4 g/dL (32.4-35.8); MEAN PLATELET VOLUME 8.4 fL (7.4-10.4); MONOCYTES # (AUTO) 0.52 x10^3/uL (0.2-0.8); MONOCYTES % (AUTO) 6 % (2-9); NEUTROPHILS # (AUTO) 6.99 x10^3/uL (1.8-6.8); NEUTROPHILS % (AUTO) 81 % (42-75); PLATELET COUNT 130 x10^3/uL (130-400); RED BLOOD COUNT 3.96 x10^6/uL (3.82-5.3); RED CELL DISTRIBUTION WIDTH 18.5 % (9.6-15.2)
[2018-07-28] MEDS: INSULIN LISPRO 100 UNITS/ML, PEN SQ-INSULIN SCH ×4 (05:00→23:00)
[2018-07-28 06:12] LABS: ANION GAP 5 mmol/L (5-15); CALCIUM 8.1 mg/dL (8.5-10.1); CHLORIDE 106 mmol/L (98-107); CREATININE 0.68 mg/dL (0.55-1.02)
[2018-07-28] MEDS: CEFTRIAXONE PMX 2GM/50ML 50 ML IV SCH (09:06)
[2018-07-28] MEDS: FAMOTIDINE 20 MG/2 ML IV SCH ×2 (09:06→23:32)
[2018-07-28] MEDS: SODIUM CHLORIDE FLUSH 10ML SYR IVF SCH ×2 (09:06→21:34)
[2018-07-28] MEDS: FENTANYL PF 100 MCG/2ML IVPush PRN (09:06)
[2018-07-28] MEDS: LEVETIRACETAM 500 MG in SODIUM CHLORIDE 0.9% 100 ML IV SCH ×2 (09:46→21:34)
[2018-07-28] MEDS: DOXYCYCLINE 100 MG in DEXTROSE 5% 250 ML IV SCH ×2 (10:13→22:04)
[2018-07-28] MEDS: ACYCLOVIR 900 MG in SODIUM CHLORIDE 0.9% 250 ML IV SCH ×2 (11:22→23:32)
[2018-07-28] MEDS: ENOXAPARIN 40 MG/0.4 ML SQ SCH (11:26)
[2018-07-28] MEDS: hydrALAzine 20 MG/ML, 1ML IV PRN (11:27)
[2018-07-28 12:23] LABS: MEAN CORPUSCULAR HEMOGLOBIN 30.3 pg (27.0-34.8); MEAN CORPUSCULAR HGB CONC 32.1 g/dL (32.4-35.8); MEAN CORPUSCULAR VOLUME 94.3 fL (80-100); MEAN PLATELET VOLUME 8.3 fL (7.4-10.4); PLATELET COUNT 130 x10^3/uL (130-400); RED BLOOD COUNT 4.09 x10^6/uL (3.82-5.3); RED CELL DISTRIBUTION WIDTH 18.7 % (9.6-15.2)
[2018-07-28] MEDS: SODIUM CHLORIDE 0.9% 1,000 ML IV SCH (14:19)
[2018-07-28 15:27] LABS: MEAN CORPUSCULAR HEMOGLOBIN 29.9 pg (27.0-34.8); MEAN CORPUSCULAR HGB CONC 31.9 g/dL (32.4-35.8); MEAN CORPUSCULAR VOLUME 93.8 fL (80-100); MEAN PLATELET VOLUME 8.1 fL (7.4-10.4); PLATELET COUNT 121 x10^3/uL (130-400); RED BLOOD COUNT 4.03 x10^6/uL (3.82-5.3); RED CELL DISTRIBUTION WIDTH 18.6 % (9.6-15.2)
[2018-07-29] MEDS: ALBUTEROL/IPRATROPIUM 2.5MG/0.5MG, 3 ML INLINE SCH ×6 (02:30→22:10)
[2018-07-29 04:16] LABS: BASOPHILS # (AUTO) 0.02 x10^3/uL (0-0.1); BASOPHILS % (AUTO) 0 % (0-1); EOSINOPHILS # (AUTO) 0.04 x10^3/uL (0-0.4); EOSINOPHILS % (AUTO) 1 % (1-7); LYMPHOCYTES % (AUTO) 23 % (22-44); MD NO; MEAN CORPUSCULAR VOLUME 93.6 fL (80-100); MEAN PLATELET VOLUME 8.1 fL (7.4-10.4); MONOCYTES # (AUTO) 0.28 x10^3/uL (0.2-0.8); MONOCYTES % (AUTO) 5 % (2-9); NEUTROPHILS # (AUTO) 3.75 x10^3/uL (1.8-6.8); NEUTROPHILS % (AUTO) 71 % (42-75); PLATELET COUNT 122 x10^3/uL (130-400); RED BLOOD COUNT 3.82 x10^6/uL (3.82-5.3); RED CELL DISTRIBUTION WIDTH 18.5 % (9.6-15.2)
[2018-07-29] MEDS: INSULIN LISPRO 100 UNITS/ML, PEN SQ-INSULIN SCH ×4 (05:00→23:00)
[2018-07-29 05:42] LABS: CHLORIDE 109 mmol/L (98-107)
[2018-07-29] MEDS: PROPOFOL 100 ML IV PRN ×2 (05:45→20:27)
[2018-07-29 05:48] LABS: ANION GAP 8 mmol/L (5-15); CALCIUM 7.7 mg/dL (8.5-10.1)
[2018-07-29] MEDS: hydrALAzine 20 MG/ML, 1ML IV PRN ×3 (07:17→22:12)
[2018-07-29] MEDS: SODIUM CHLORIDE FLUSH 10ML SYR IVF SCH ×2 (07:18→21:29)
[2018-07-29] MEDS ORDERED: POTASSIUM CHLORIDE 20 MEQ PACKET PO ONE (08:30)
[2018-07-29] MEDS: CEFTRIAXONE PMX 2GM/50ML 50 ML IV SCH (09:07)
[2018-07-29] MEDS: FAMOTIDINE 20 MG/2 ML IV SCH ×2 (10:45→22:11)
[2018-07-29] MEDS: LEVETIRACETAM 500 MG in SODIUM CHLORIDE 0.9% 100 ML IV SCH ×2 (10:45→21:20)
[2018-07-29] MEDS: ENOXAPARIN 40 MG/0.4 ML SQ SCH (10:46)
[2018-07-29] MEDS: ACYCLOVIR 900 MG in SODIUM CHLORIDE 0.9% 250 ML IV SCH ×2 (11:37→22:12)
[2018-07-29] MEDS: SODIUM CHLORIDE 0.9% 1,000 ML IV SCH (11:37)
[2018-07-29] MEDS: FENTANYL PF 100 MCG/2ML IVPush PRN ×3 (11:38→21:28)
[2018-07-30] MEDS: ALBUTEROL/IPRATROPIUM 2.5MG/0.5MG, 3 ML INLINE SCH ×6 (02:10→22:36)
[2018-07-30] MEDS: FENTANYL PF 100 MCG/2ML IVPush PRN ×4 (03:44→22:14)
[2018-07-30 04:33] LABS: BASOPHILS # (AUTO) 0.02 x10^3/uL (0-0.1); BASOPHILS % (AUTO) 0 % (0-1); EOSINOPHILS # (AUTO) 0.08 x10^3/uL (0-0.4); EOSINOPHILS % (AUTO) 2 % (1-7); LYMPHOCYTES # (AUTO) 0.96 x10^3/uL (1-3.4); LYMPHOCYTES % (AUTO) 21 % (22-44); MD NO; MEAN CORPUSCULAR HEMOGLOBIN 30.3 pg (27.0-34.8); MEAN CORPUSCULAR HGB CONC 32.4 g/dL (32.4-35.8); MEAN CORPUSCULAR VOLUME 93.5 fL (80-100); MEAN PLATELET VOLUME 7.7 fL (7.4-10.4); MONOCYTES # (AUTO) 0.31 x10^3/uL (0.2-0.8); MONOCYTES % (AUTO) 7 % (2-9); NEUTROPHILS # (AUTO) 3.31 x10^3/uL (1.8-6.8); NEUTROPHILS % (AUTO) 71 % (42-75); PLATELET COUNT 129 x10^3/uL (130-400); RED BLOOD COUNT 4.11 x10^6/uL (3.82-5.3); RED CELL DISTRIBUTION WIDTH 19.1 % (9.6-15.2)
[2018-07-30] MEDS: INSULIN LISPRO 100 UNITS/ML, PEN SQ-INSULIN SCH ×3 (05:00→17:49)
[2018-07-30] MEDS: PROPOFOL 100 ML IV PRN ×2 (06:10→22:22)
[2018-07-30 07:44] LABS: ANION GAP 5 mmol/L (5-15); CALCIUM 7.6 mg/dL (8.5-10.1); CHLORIDE 112 mmol/L (98-107); CREATININE 0.69 mg/dL (0.55-1.02)
[2018-07-30] MEDS: hydrALAzine 20 MG/ML, 1ML IV PRN (07:45)
[2018-07-30] MEDS: SODIUM CHLORIDE FLUSH 10ML SYR IVF SCH ×2 (07:45→21:33)
[2018-07-30] MEDS: SODIUM CHLORIDE 0.9% 1,000 ML IV SCH (07:45)
[2018-07-30] MEDS: FAMOTIDINE 20 MG/2 ML IV SCH ×2 (09:42→22:14)
[2018-07-30] MEDS: CEFTRIAXONE PMX 2GM/50ML 50 ML IV SCH (09:42)
[2018-07-30] MEDS: ACYCLOVIR 900 MG in SODIUM CHLORIDE 0.9% 250 ML IV SCH ×2 (09:42→22:14)
[2018-07-30] MEDS: LEVETIRACETAM 500 MG in SODIUM CHLORIDE 0.9% 100 ML IV SCH ×2 (09:42→21:34)
[2018-07-30] MEDS: ENOXAPARIN 40 MG/0.4 ML SQ SCH (11:09)
[2018-07-30] MEDS ORDERED: SODIUM CHLORIDE 0.9%, 500ML IVBOLUS ONE (12:30)
[2018-07-30] MEDS ORDERED: FUROSEMIDE 20 MG/2 ML IV ONE (14:30)
[2018-07-31] MEDS: INSULIN LISPRO 100 UNITS/ML, PEN SQ-INSULIN SCH ×5 (00:23→22:29)
[2018-07-31] MEDS: ALBUTEROL/IPRATROPIUM 2.5MG/0.5MG, 3 ML INLINE SCH ×6 (02:13→22:11)
[2018-07-31 04:35] LABS: BASOPHILS # (AUTO) 0.02 x10^3/uL (0-0.1); BASOPHILS % (AUTO) 0 % (0-1); EOSINOPHILS # (AUTO) 0.07 x10^3/uL (0-0.4); EOSINOPHILS % (AUTO) 1 % (1-7); LYMPHOCYTES # (AUTO) 0.97 x10^3/uL (1-3.4); LYMPHOCYTES % (AUTO) 20 % (22-44); MD NO; MEAN CORPUSCULAR HEMOGLOBIN 30.2 pg (27.0-34.8); MEAN CORPUSCULAR HGB CONC 32.1 g/dL (32.4-35.8); MEAN PLATELET VOLUME 7.8 fL (7.4-10.4); MONOCYTES # (AUTO) 0.32 x10^3/uL (0.2-0.8); MONOCYTES % (AUTO) 7 % (2-9); NEUTROPHILS # (AUTO) 3.52 x10^3/uL (1.8-6.8); NEUTROPHILS % (AUTO) 72 % (42-75); PLATELET COUNT 123 x10^3/uL (130-400); RED BLOOD COUNT 3.76 x10^6/uL (3.82-5.3); RED CELL DISTRIBUTION WIDTH 19.1 % (9.6-15.2)
[2018-07-31 04:45] LABS: ANION GAP 7 mmol/L (5-15); CALCIUM 7.6 mg/dL (8.5-10.1); CHLORIDE 113 mmol/L (98-107); CREATININE 1.62 mg/dL (0.55-1.02)
[2018-07-31] MEDS: SODIUM CHLORIDE 0.9% 1,000 ML IV SCH (08:32)
[2018-07-31] MEDS: CEFTRIAXONE PMX 2GM/50ML 50 ML IV SCH (08:33)
[2018-07-31] MEDS: SODIUM CHLORIDE FLUSH 10ML SYR IVF SCH ×2 (08:33→21:00)
[2018-07-31] MEDS: LEVETIRACETAM 500 MG in SODIUM CHLORIDE 0.9% 100 ML IV SCH ×2 (09:13→22:28)
[2018-07-31] MEDS: hydrALAzine 20 MG/ML, 1ML IV PRN ×2 (10:11→20:31)
[2018-07-31] MEDS: FAMOTIDINE 20 MG/2 ML IV SCH (10:11)
[2018-07-31] MEDS: ACYCLOVIR 900 MG in SODIUM CHLORIDE 0.9% 250 ML IV SCH (10:12)
[2018-07-31] MEDS ORDERED: ENOXAPARIN 30 MG/0.3 ML SQ SCH (11:00)
[2018-07-31] MEDS: AMLODIPINE 5 MG TABLET PO SCH (17:15)
[2018-07-31] MEDS: ACYCLOVIR 600 MG in SODIUM CHLORIDE 0.9% 250 ML IV SCH (22:28)
[2018-08-01] MEDS: ALBUTEROL/IPRATROPIUM 2.5MG/0.5MG, 3 ML INLINE SCH ×3 (02:21→10:10)
[2018-08-01] MEDS: hydrALAzine 20 MG/ML, 1ML IV PRN ×3 (02:47→17:07)
[2018-08-01 04:13] LABS: BASOPHILS # (AUTO) 0.02 x10^3/uL (0-0.1); BASOPHILS % (AUTO) 0 % (0-1); EOSINOPHILS # (AUTO) 0.06 x10^3/uL (0-0.4); EOSINOPHILS % (AUTO) 1 % (1-7); LYMPHOCYTES # (AUTO) 0.74 x10^3/uL (1-3.4); LYMPHOCYTES % (AUTO) 15 % (22-44); MD NO; MEAN CORPUSCULAR HEMOGLOBIN 30.4 pg (27.0-34.8); MEAN CORPUSCULAR HGB CONC 32.2 g/dL (32.4-35.8); MEAN CORPUSCULAR VOLUME 94.4 fL (80-100); MEAN PLATELET VOLUME 7.9 fL (7.4-10.4); MONOCYTES # (AUTO) 0.34 x10^3/uL (0.2-0.8); MONOCYTES % (AUTO) 7 % (2-9); NEUTROPHILS # (AUTO) 3.82 x10^3/uL (1.8-6.8); NEUTROPHILS % (AUTO) 77 % (42-75); PLATELET COUNT 128 x10^3/uL (130-400); RED BLOOD COUNT 3.87 x10^6/uL (3.82-5.3); RED CELL DISTRIBUTION WIDTH 18.6 % (9.6-15.2)
[2018-08-01] MEDS: INSULIN LISPRO 100 UNITS/ML, PEN SQ-INSULIN SCH ×4 (05:48→23:22)
[2018-08-01] MEDS: SODIUM CHLORIDE 0.9% 1,000 ML IV SCH (05:53)
[2018-08-01 06:08] LABS: CHLORIDE 113 mmol/L (98-107)
[2018-08-01 06:18] LABS: ANION GAP 6 mmol/L (5-15); CALCIUM 7.8 mg/dL (8.5-10.1); CREATININE 1.36 mg/dL (0.55-1.02)
[2018-08-01] MEDS ORDERED: MIDAZOLAM 1 MG/ML, 5ML ONE (08:00)
[2018-08-01] MEDS ORDERED: PROPOFOL 10 MG/ML, 100ML IV ONE (08:00)
[2018-08-01] MEDS ORDERED: SUCCINYLCHOLINE 20 MG/ML, 10ML ONE (08:00)
[2018-08-01] MEDS: SODIUM CHLORIDE FLUSH 10ML SYR IVF SCH ×2 (08:50→20:06)
[2018-08-01] MEDS: CEFTRIAXONE PMX 2GM/50ML 50 ML IV SCH (08:50)
[2018-08-01] MEDS: FAMOTIDINE 20 MG/2 ML IV SCH (08:50)
[2018-08-01] MEDS: AMLODIPINE 5 MG TABLET PO SCH (08:50)
[2018-08-01] MEDS: LEVETIRACETAM 500 MG in SODIUM CHLORIDE 0.9% 100 ML IV SCH ×2 (10:09→21:15)
[2018-08-01] MEDS: ENOXAPARIN 40 MG/0.4 ML SQ SCH (11:19)
[2018-08-01] MEDS: ACYCLOVIR 600 MG in SODIUM CHLORIDE 0.9% 250 ML IV SCH ×2 (12:05→23:21)
[2018-08-01] MEDS ORDERED: RACEPINEPHRINE INH 2.25%, 0.5ML ONE ×2 (12:07→14:41)
[2018-08-01] MEDS: RACEPINEPHRINE INH 2.25%, 0.5ML NPPB PRN ×2 (14:41→17:10)
[2018-08-01] MEDS: ALBUTEROL/IPRATROPIUM 2.5MG/0.5MG, 3 ML NPPB SCH ×3 (14:41→22:18)
[2018-08-01] MEDS ORDERED: DEXAMETHASONE 4 MG/ML, 1ML ONE (15:36)
[2018-08-01] MEDS: DEXAMETHASONE 4 MG/ML, 1ML IVPush SCH ×2 (15:39→20:06)
[2018-08-01] MEDS: FENTANYL PF 100 MCG/2ML IVPush PRN (23:22)
[2018-08-02] MEDS: DEXAMETHASONE 4 MG/ML, 1ML IVPush SCH ×4 (01:08→11:33)
[2018-08-02] MEDS: hydrALAzine 20 MG/ML, 1ML IV PRN ×3 (01:08→10:28)
[2018-08-02] MEDS: FENTANYL PF 100 MCG/2ML IVPush PRN ×3 (01:08→19:21)
[2018-08-02] MEDS: ALBUTEROL/IPRATROPIUM 2.5MG/0.5MG, 3 ML NPPB SCH ×6 (02:35→22:46)
[2018-08-02] MEDS: SODIUM CHLORIDE 0.9% 1,000 ML IV SCH (04:01)
[2018-08-02 04:41] LABS: BASOPHILS # (AUTO) 0.01 x10^3/uL (0-0.1); BASOPHILS % (AUTO) 0 % (0-1); EOSINOPHILS # (AUTO) 0.01 x10^3/uL (0-0.4); EOSINOPHILS % (AUTO) 0 % (1-7); LYMPHOCYTES # (AUTO) 0.43 x10^3/uL (1-3.4); LYMPHOCYTES % (AUTO) 10 % (22-44); MD NO; MEAN CORPUSCULAR HGB CONC 32.1 g/dL (32.4-35.8); MEAN CORPUSCULAR VOLUME 93.6 fL (80-100); MEAN PLATELET VOLUME 8.2 fL (7.4-10.4); MONOCYTES # (AUTO) 0.07 x10^3/uL (0.2-0.8); MONOCYTES % (AUTO) 2 % (2-9); NEUTROPHILS # (AUTO) 3.64 x10^3/uL (1.8-6.8); NEUTROPHILS % (AUTO) 88 % (42-75); PLATELET COUNT 136 x10^3/uL (130-400); RED BLOOD COUNT 3.85 x10^6/uL (3.82-5.3); RED CELL DISTRIBUTION WIDTH 18.8 % (9.6-15.2)
[2018-08-02 04:56] LABS: CHLORIDE 113 mmol/L (98-107)
[2018-08-02 05:03] LABS: ANION GAP 3 mmol/L (5-15); CREATININE 0.91 mg/dL (0.55-1.02)
[2018-08-02] MEDS: INSULIN LISPRO 100 UNITS/ML, PEN SQ-INSULIN SCH ×4 (05:18→22:38)
[2018-08-02] MEDS: AMLODIPINE 5 MG TABLET PO SCH (07:49)
[2018-08-02] MEDS: SODIUM CHLORIDE FLUSH 10ML SYR IVF SCH ×2 (07:50→20:04)
[2018-08-02] MEDS: FAMOTIDINE 20 MG/2 ML IV SCH (07:50)
[2018-08-02] MEDS: CEFTRIAXONE PMX 2GM/50ML 50 ML IV SCH (08:07)
[2018-08-02] MEDS: LEVETIRACETAM 500 MG in SODIUM CHLORIDE 0.9% 100 ML IV SCH ×2 (08:51→21:24)
[2018-08-02] MEDS: ACYCLOVIR 600 MG in SODIUM CHLORIDE 0.9% 250 ML IV SCH ×2 (11:25→19:55)
[2018-08-02] MEDS: ENOXAPARIN 40 MG/0.4 ML SQ SCH (11:33)
[2018-08-02] MEDS ORDERED: PROPOFOL 100 ML IV ONE (19:17)
[2018-08-02] MEDS: PROPOFOL 100 ML IV PRN (19:56)
[2018-08-02] MEDS: FAMOTIDINE 20 MG TABLET PO SCH (21:04)
[2018-08-03] MEDS: SODIUM CHLORIDE 0.9% 1,000 ML IV SCH (00:45)
[2018-08-03] MEDS: ALBUTEROL/IPRATROPIUM 2.5MG/0.5MG, 3 ML NPPB SCH ×6 (02:57→22:10)
[2018-08-03] MEDS: hydrALAzine 20 MG/ML, 1ML IV PRN ×2 (03:30→22:28)
[2018-08-03] MEDS: ACYCLOVIR 600 MG in SODIUM CHLORIDE 0.9% 250 ML IV SCH ×3 (03:30→20:14)
[2018-08-03 04:46] LABS: BASOPHILS # (AUTO) 0.02 x10^3/uL (0-0.1); BASOPHILS % (AUTO) 0 % (0-1); EOSINOPHILS # (AUTO) 0.03 x10^3/uL (0-0.4); EOSINOPHILS % (AUTO) 1 % (1-7); LYMPHOCYTES # (AUTO) 1.18 x10^3/uL (1-3.4); LYMPHOCYTES % (AUTO) 18 % (22-44); MD NO; MEAN CORPUSCULAR HEMOGLOBIN 29.3 pg (27.0-34.8); MEAN CORPUSCULAR HGB CONC 31.1 g/dL (32.4-35.8); MEAN CORPUSCULAR VOLUME 94.3 fL (80-100); MEAN PLATELET VOLUME 7.7 fL (7.4-10.4); MONOCYTES # (AUTO) 0.51 x10^3/uL (0.2-0.8); MONOCYTES % (AUTO) 8 % (2-9); NEUTROPHILS # (AUTO) 4.68 x10^3/uL (1.8-6.8); NEUTROPHILS % (AUTO) 73 % (42-75); PLATELET COUNT 150 x10^3/uL (130-400); RED BLOOD COUNT 3.78 x10^6/uL (3.82-5.3); RED CELL DISTRIBUTION WIDTH 18.3 % (9.6-15.2)
[2018-08-03 04:52] LABS: ANION GAP 4 mmol/L (5-15); CALCIUM 7.9 mg/dL (8.5-10.1); CHLORIDE 111 mmol/L (98-107); CREATININE 0.78 mg/dL (0.55-1.02); TRIGLYCERIDES 163 mg/dL (50-200)
[2018-08-03] MEDS: INSULIN LISPRO 100 UNITS/ML, PEN SQ-INSULIN SCH ×4 (05:12→22:25)
[2018-08-03] MEDS: LEVETIRACETAM 500 MG in SODIUM CHLORIDE 0.9% 100 ML IV SCH ×2 (09:05→21:25)
[2018-08-03] MEDS: CEFTRIAXONE PMX 2GM/50ML 50 ML IV SCH (09:09)
[2018-08-03] MEDS: FAMOTIDINE 20 MG TABLET PO SCH ×2 (09:09→20:14)
[2018-08-03] MEDS: AMLODIPINE 5 MG TABLET PO SCH (09:09)
[2018-08-03] MEDS: SODIUM CHLORIDE FLUSH 10ML SYR IVF SCH ×2 (09:15→20:14)
[2018-08-03] MEDS: ENOXAPARIN 40 MG/0.4 ML SQ SCH (11:10)
[2018-08-03] MEDS: DEXAMETHASONE 4 MG/ML, 1ML IVPush SCH ×3 (11:10→22:25)
[2018-08-03] MEDS ORDERED: FUROSEMIDE 20 MG/2 ML IV ONE (12:00)
[2018-08-03] MEDS ORDERED: ALBUMIN HUMAN 25% 50 ML IV ONE (12:00)
[2018-08-03] MEDS: PROPOFOL 100 ML IV PRN ×3 (18:17→22:25)
[2018-08-04] MEDS: FENTANYL PF 100 MCG/2ML IVPush PRN (00:44)
[2018-08-04] MEDS: ALBUTEROL/IPRATROPIUM 2.5MG/0.5MG, 3 ML NPPB SCH ×6 (02:08→22:22)
[2018-08-04] MEDS: hydrALAzine 20 MG/ML, 1ML IV PRN ×2 (03:06→16:45)
[2018-08-04] MEDS: ACYCLOVIR 600 MG in SODIUM CHLORIDE 0.9% 250 ML IV SCH ×3 (03:50→20:40)
[2018-08-04 04:10] LABS: BASOPHILS # (AUTO) 0.01 x10^3/uL (0-0.1); BASOPHILS % (AUTO) 0 % (0-1); EOSINOPHILS % (AUTO) 0 % (1-7); LYMPHOCYTES # (AUTO) 0.43 x10^3/uL (1-3.4); LYMPHOCYTES % (AUTO) 12 % (22-44); MD NO; MEAN CORPUSCULAR HEMOGLOBIN 30.2 pg (27.0-34.8); MEAN CORPUSCULAR HGB CONC 32.6 g/dL (32.4-35.8); MEAN CORPUSCULAR VOLUME 92.7 fL (80-100); MEAN PLATELET VOLUME 8.1 fL (7.4-10.4); MONOCYTES # (AUTO) 0.14 x10^3/uL (0.2-0.8); MONOCYTES % (AUTO) 4 % (2-9); NEUTROPHILS # (AUTO) 3.14 x10^3/uL (1.8-6.8); NEUTROPHILS % (AUTO) 84 % (42-75); PLATELET COUNT 134 x10^3/uL (130-400); RED BLOOD COUNT 3.65 x10^6/uL (3.82-5.3); RED CELL DISTRIBUTION WIDTH 18.6 % (9.6-15.2)
[2018-08-04 04:19] LABS: ANION GAP 5 mmol/L (5-15); CALCIUM 7.8 mg/dL (8.5-10.1); CHLORIDE 106 mmol/L (98-107); CREATININE 0.77 mg/dL (0.55-1.02); TRIGLYCERIDES 129 mg/dL (50-200)
[2018-08-04] MEDS: INSULIN LISPRO 100 UNITS/ML, PEN SQ-INSULIN SCH ×4 (04:52→23:16)
[2018-08-04] MEDS: DEXAMETHASONE 4 MG/ML, 1ML IVPush SCH ×4 (04:58→23:25)
[2018-08-04] MEDS: SODIUM CHLORIDE FLUSH 10ML SYR IVF SCH ×2 (08:15→20:40)
[2018-08-04] MEDS: CEFTRIAXONE PMX 2GM/50ML 50 ML IV SCH (08:15)
[2018-08-04] MEDS: FAMOTIDINE 20 MG TABLET PO SCH ×2 (08:15→20:40)
[2018-08-04] MEDS: AMLODIPINE 5 MG TABLET PO SCH (08:15)
[2018-08-04] MEDS: CARVEDILOL 6.25 MG TABLET PO SCH ×2 (08:18→16:45)
[2018-08-04] MEDS: LEVETIRACETAM 500 MG in SODIUM CHLORIDE 0.9% 100 ML IV SCH ×2 (09:25→22:10)
[2018-08-04] MEDS: PROPOFOL 100 ML IV PRN ×2 (11:15→20:41)
[2018-08-04] MEDS: ENOXAPARIN 40 MG/0.4 ML SQ SCH (11:19)
[2018-08-05] MEDS: ALBUTEROL/IPRATROPIUM 2.5MG/0.5MG, 3 ML NPPB SCH ×6 (02:34→22:32)
[2018-08-05] MEDS: ACYCLOVIR 600 MG in SODIUM CHLORIDE 0.9% 250 ML IV SCH ×3 (04:13→20:47)
[2018-08-05] MEDS: hydrALAzine 20 MG/ML, 1ML IV PRN ×2 (04:15→11:20)
[2018-08-05] MEDS: PROPOFOL 100 ML IV PRN ×2 (04:19→17:19)
[2018-08-05 04:26] LABS: BASOPHILS # (AUTO) 0.02 x10^3/uL (0-0.1); BASOPHILS % (AUTO) 0 % (0-1); EOSINOPHILS # (AUTO) 0.01 x10^3/uL (0-0.4); EOSINOPHILS % (AUTO) 0 % (1-7); LYMPHOCYTES # (AUTO) 0.76 x10^3/uL (1-3.4); LYMPHOCYTES % (AUTO) 15 % (22-44); MD NO; MEAN CORPUSCULAR HGB CONC 32.4 g/dL (32.4-35.8); MEAN CORPUSCULAR VOLUME 92.5 fL (80-100); MEAN PLATELET VOLUME 8.3 fL (7.4-10.4); MONOCYTES # (AUTO) 0.28 x10^3/uL (0.2-0.8); MONOCYTES % (AUTO) 5 % (2-9); NEUTROPHILS # (AUTO) 4.15 x10^3/uL (1.8-6.8); NEUTROPHILS % (AUTO) 80 % (42-75); PLATELET COUNT 132 x10^3/uL (130-400); RED BLOOD COUNT 3.74 x10^6/uL (3.82-5.3); RED CELL DISTRIBUTION WIDTH 17.9 % (9.6-15.2)
[2018-08-05 04:34] LABS: ANION GAP 6 mmol/L (5-15); CALCIUM 7.8 mg/dL (8.5-10.1); CHLORIDE 105 mmol/L (98-107)
[2018-08-05 04:36] LABS: CREATININE 0.63 mg/dL (0.55-1.02)
[2018-08-05] MEDS: INSULIN LISPRO 100 UNITS/ML, PEN SQ-INSULIN SCH ×3 (05:33→17:07)
[2018-08-05] MEDS: DEXAMETHASONE 4 MG/ML, 1ML IVPush SCH ×3 (05:40→17:02)
[2018-08-05] MEDS: CARVEDILOL 6.25 MG TABLET PO SCH ×2 (05:40→17:03)
[2018-08-05] MEDS ORDERED: INSULIN LISPRO 100 UNITS/ML, PEN SQ-INSULIN SCH (07:00)
[2018-08-05] MEDS: SODIUM CHLORIDE FLUSH 10ML SYR IVF SCH ×2 (07:34→20:47)
[2018-08-05] MEDS: FAMOTIDINE 20 MG TABLET PO SCH ×2 (07:35→20:47)
[2018-08-05] MEDS: AMLODIPINE 5 MG TABLET PO SCH (07:35)
[2018-08-05] MEDS: CEFTRIAXONE PMX 2GM/50ML 50 ML IV SCH (08:18)
[2018-08-05] MEDS: LEVETIRACETAM 500 MG in SODIUM CHLORIDE 0.9% 100 ML IV SCH ×2 (09:17→22:12)
[2018-08-05] MEDS: LISINOPRIL 10 MG TABLET PO SCH ×2 (09:18→20:47)
[2018-08-05] MEDS: ENOXAPARIN 40 MG/0.4 ML SQ SCH (11:20)
[2018-08-05] MEDS: FUROSEMIDE 20 MG/2 ML IV SCH (17:03)
[2018-08-06] MEDS: INSULIN LISPRO 100 UNITS/ML, PEN SQ-INSULIN SCH ×5 (00:02→21:11)
[2018-08-06] MEDS: DEXAMETHASONE 4 MG/ML, 1ML IVPush SCH ×5 (00:02→23:25)
[2018-08-06] MEDS: ALBUTEROL/IPRATROPIUM 2.5MG/0.5MG, 3 ML NPPB SCH ×4 (02:03→20:06)
[2018-08-06 04:34] LABS: BASOPHILS # (AUTO) 0.01 x10^3/uL (0-0.1); BASOPHILS % (AUTO) 0 % (0-1); EOSINOPHILS # (AUTO) 0.01 x10^3/uL (0-0.4); EOSINOPHILS % (AUTO) 0 % (1-7); LYMPHOCYTES # (AUTO) 0.79 x10^3/uL (1-3.4); LYMPHOCYTES % (AUTO) 13 % (22-44); MD NO; MEAN CORPUSCULAR HEMOGLOBIN 29.4 pg (27.0-34.8); MEAN CORPUSCULAR HGB CONC 32.2 g/dL (32.4-35.8); MEAN CORPUSCULAR VOLUME 91.4 fL (80-100); MEAN PLATELET VOLUME 8.1 fL (7.4-10.4); MONOCYTES # (AUTO) 0.29 x10^3/uL (0.2-0.8); MONOCYTES % (AUTO) 5 % (2-9); NEUTROPHILS # (AUTO) 4.77 x10^3/uL (1.8-6.8); NEUTROPHILS % (AUTO) 81 % (42-75); PLATELET COUNT 147 x10^3/uL (130-400); RED BLOOD COUNT 3.75 x10^6/uL (3.82-5.3); RED CELL DISTRIBUTION WIDTH 17.5 % (9.6-15.2)
[2018-08-06 04:47] LABS: ANION GAP 3 mmol/L (5-15); CALCIUM 7.7 mg/dL (8.5-10.1); CHLORIDE 106 mmol/L (98-107); CREATININE 0.65 mg/dL (0.55-1.02)
[2018-08-06] MEDS: ACYCLOVIR 600 MG in SODIUM CHLORIDE 0.9% 250 ML IV SCH (05:06)
[2018-08-06] MEDS: PROPOFOL 100 ML IV PRN (05:06)
[2018-08-06] MEDS: CARVEDILOL 6.25 MG TABLET PO SCH ×2 (05:34→18:10)
[2018-08-06] MEDS: hydrALAzine 20 MG/ML, 1ML IV PRN ×3 (05:34→19:39)
[2018-08-06] MEDS: FUROSEMIDE 20 MG/2 ML IV SCH ×2 (09:10→17:14)
[2018-08-06] MEDS: LISINOPRIL 10 MG TABLET PO SCH ×2 (09:11→19:40)
[2018-08-06] MEDS: FAMOTIDINE 20 MG TABLET PO SCH ×2 (09:11→19:40)
[2018-08-06] MEDS: AMLODIPINE 5 MG TABLET PO SCH (09:11)
[2018-08-06] MEDS: SODIUM CHLORIDE FLUSH 10ML SYR IVF SCH ×2 (09:19→21:10)
[2018-08-06] MEDS: CEFTRIAXONE PMX 2GM/50ML 50 ML IV SCH (09:21)
[2018-08-06] MEDS: LEVETIRACETAM 500 MG in SODIUM CHLORIDE 0.9% 100 ML IV SCH ×2 (10:44→21:10)
[2018-08-06] MEDS: ENOXAPARIN 40 MG/0.4 ML SQ SCH (11:00)
[2018-08-06] MEDS: RACEPINEPHRINE INH 2.25%, 0.5ML NPPB PRN (11:25)
[2018-08-06] MEDS ORDERED: ALBUTEROL/IPRATROPIUM 2.5MG/0.5MG, 3 ML NPPB SCH (14:00)
[2018-08-06] MEDS ORDERED: FENTANYL PF 100 MCG/2ML IVPush PRN (15:30)
[2018-08-07 04:49] LABS: BASOPHILS # (AUTO) 0.02 x10^3/uL (0-0.1); BASOPHILS % (AUTO) 0 % (0-1); EOSINOPHILS # (AUTO) 0.01 x10^3/uL (0-0.4); EOSINOPHILS % (AUTO) 0 % (1-7); LYMPHOCYTES # (AUTO) 0.94 x10^3/uL (1-3.4); LYMPHOCYTES % (AUTO) 11 % (22-44); MD NO; MEAN CORPUSCULAR HEMOGLOBIN 29.9 pg (27.0-34.8); MEAN CORPUSCULAR HGB CONC 32.4 g/dL (32.4-35.8); MEAN CORPUSCULAR VOLUME 92.3 fL (80-100); MEAN PLATELET VOLUME 8.3 fL (7.4-10.4); MONOCYTES # (AUTO) 0.29 x10^3/uL (0.2-0.8); MONOCYTES % (AUTO) 3 % (2-9); NEUTROPHILS # (AUTO) 7.37 x10^3/uL (1.8-6.8); NEUTROPHILS % (AUTO) 85 % (42-75); PLATELET COUNT 186 x10^3/uL (130-400); RED BLOOD COUNT 4.31 x10^6/uL (3.82-5.3); RED CELL DISTRIBUTION WIDTH 18.2 % (9.6-15.2)
[2018-08-07 04:54] LABS: ANION GAP 4 mmol/L (5-15); CALCIUM 8.1 mg/dL (8.5-10.1); CHLORIDE 102 mmol/L (98-107); CREATININE 0.64 mg/dL (0.55-1.02); TRIGLYCERIDES 235 mg/dL (50-200)
[2018-08-07] MEDS: DEXAMETHASONE 4 MG/ML, 1ML IVPush SCH (05:30)
[2018-08-07] MEDS: hydrALAzine 20 MG/ML, 1ML IV PRN ×2 (05:30→22:39)
[2018-08-07] MEDS: CARVEDILOL 6.25 MG TABLET PO SCH (06:00)
[2018-08-07] MEDS: ALBUTEROL/IPRATROPIUM 2.5MG/0.5MG, 3 ML NPPB SCH ×2 (07:45→11:15)
[2018-08-07] MEDS: INSULIN LISPRO 100 UNITS/ML, PEN SQ-INSULIN SCH ×4 (09:01→22:21)
[2018-08-07] MEDS: CEFTRIAXONE PMX 2GM/50ML 50 ML IV SCH (09:02)
[2018-08-07] MEDS: FAMOTIDINE 20 MG TABLET PO SCH (09:03)
[2018-08-07] MEDS: FUROSEMIDE 40 MG TABLET PO SCH (09:03)
[2018-08-07] MEDS: AMLODIPINE 5 MG TABLET PO SCH (09:03)
[2018-08-07] MEDS: LISINOPRIL 20 MG TABLET PO SCH ×2 (09:03→23:28)
[2018-08-07] MEDS: SODIUM CHLORIDE FLUSH 10ML SYR IVF SCH ×2 (09:03→22:19)
[2018-08-07] MEDS: LEVETIRACETAM 500 MG TABLET PO SCH ×2 (09:04→23:28)
[2018-08-07] MEDS: QUETIAPINE 25MG TABLET PO SCH (09:04)
[2018-08-07] MEDS: CITALOPRAM 20 MG TABLET PO SCH (09:04)
[2018-08-07] MEDS: ENOXAPARIN 40 MG/0.4 ML SQ SCH (10:58)
[2018-08-07 12:45] VITALS: BP 136/57
[2018-08-07] MEDS ORDERED: ALBUTEROL/IPRATROPIUM 2.5MG/0.5MG, 3 ML NPPB PRN (16:00)
[2018-08-07] MEDS: CARVEDILOL 3.125 MG TABLET PO SCH (18:01)
[2018-08-07 22:06] VITALS: BP 180/70
[2018-08-07] MEDS: SIMVASTATIN 20 MG TABLET PO SCH (23:28)
[2018-08-08 02:30] VITALS: BP 150/61
[2018-08-08 05:44] LABS: BASOPHILS # (AUTO) 0.02 x10^3/uL (0-0.1); BASOPHILS % (AUTO) 0 % (0-1); EOSINOPHILS # (AUTO) 0.07 x10^3/uL (0-0.4); EOSINOPHILS % (AUTO) 1 % (1-7); LYMPHOCYTES # (AUTO) 1.35 x10^3/uL (1-3.4); LYMPHOCYTES % (AUTO) 14 % (22-44); MD NO; MEAN CORPUSCULAR HEMOGLOBIN 29.7 pg (27.0-34.8); MEAN CORPUSCULAR HGB CONC 32.2 g/dL (32.4-35.8); MEAN CORPUSCULAR VOLUME 92.1 fL (80-100); MEAN PLATELET VOLUME 7.8 fL (7.4-10.4); MONOCYTES # (AUTO) 0.38 x10^3/uL (0.2-0.8); MONOCYTES % (AUTO) 4 % (2-9); NEUTROPHILS # (AUTO) 8.05 x10^3/uL (1.8-6.8); NEUTROPHILS % (AUTO) 82 % (42-75); PLATELET COUNT 158 x10^3/uL (130-400); RED BLOOD COUNT 4.25 x10^6/uL (3.82-5.3); RED CELL DISTRIBUTION WIDTH 17.7 % (9.6-15.2)
[2018-08-08 05:57] LABS: ANION GAP 4 mmol/L (5-15); CALCIUM 7.9 mg/dL (8.5-10.1); CHLORIDE 101 mmol/L (98-107); CREATININE 0.56 mg/dL (0.55-1.02)
[2018-08-08] MEDS: CARVEDILOL 3.125 MG TABLET PO SCH ×2 (06:37→17:40)
[2018-08-08] MEDS: INSULIN LISPRO 100 UNITS/ML, PEN SQ-INSULIN SCH ×4 (07:00→21:00)
[2018-08-08 08:04] VITALS: BP 176/79
[2018-08-08] MEDS: LEVETIRACETAM 500 MG TABLET PO SCH ×2 (09:23→22:05)
[2018-08-08] MEDS: QUETIAPINE 25MG TABLET PO SCH (09:23)
[2018-08-08] MEDS: LISINOPRIL 20 MG TABLET PO SCH ×2 (09:24→22:05)
[2018-08-08] MEDS: FAMOTIDINE 20 MG TABLET PO SCH (09:24)
[2018-08-08] MEDS: CITALOPRAM 20 MG TABLET PO SCH (09:24)
[2018-08-08] MEDS: ENOXAPARIN 40 MG/0.4 ML SQ SCH (09:25)
[2018-08-08] MEDS: FUROSEMIDE 40 MG TABLET PO SCH (09:25)
[2018-08-08] MEDS: AMLODIPINE 5 MG TABLET PO SCH ×2 (09:27→22:06)
[2018-08-08] MEDS: SODIUM CHLORIDE FLUSH 10ML SYR IVF SCH ×2 (09:28→22:05)
[2018-08-08] MEDS: POTASSIUM CHLORIDE 20 MEQ TAB.ER.PRT PO SCH ×2 (09:28→12:45)
[2018-08-08] MEDS: CEFTRIAXONE PMX 2GM/50ML 50 ML IV SCH (09:29)
[2018-08-08 14:56] VITALS: BP 151/71
[2018-08-08] MEDS ORDERED: MORPHINE SULFATE 4 MG/ML, 1ML IVPush PRN (18:00)
[2018-08-08] MEDS ORDERED: ACETAMINOPHEN 500 MG TABLET PO PRN (18:00)
[2018-08-08 18:51] VITALS: BP 149/76
[2018-08-08] MEDS: SIMVASTATIN 20 MG TABLET PO SCH (22:05)
[2018-08-09 01:39] VITALS: BP 158/68
[2018-08-09 05:16] LABS: BASOPHILS # (AUTO) 0.01 x10^3/uL (0-0.1); BASOPHILS % (AUTO) 0 % (0-1); EOSINOPHILS # (AUTO) 0.06 x10^3/uL (0-0.4); EOSINOPHILS % (AUTO) 1 % (1-7); LYMPHOCYTES # (AUTO) 1.51 x10^3/uL (1-3.4); LYMPHOCYTES % (AUTO) 23 % (22-44); MD NO; MEAN CORPUSCULAR HEMOGLOBIN 29.9 pg (27.0-34.8); MEAN CORPUSCULAR HGB CONC 32.3 g/dL (32.4-35.8); MEAN CORPUSCULAR VOLUME 92.6 fL (80-100); MEAN PLATELET VOLUME 7.8 fL (7.4-10.4); MONOCYTES # (AUTO) 0.45 x10^3/uL (0.2-0.8); MONOCYTES % (AUTO) 7 % (2-9); NEUTROPHILS % (AUTO) 69 % (42-75); PLATELET COUNT 153 x10^3/uL (130-400); RED BLOOD COUNT 3.98 x10^6/uL (3.82-5.3); RED CELL DISTRIBUTION WIDTH 17.8 % (9.6-15.2)
[2018-08-09 05:29] LABS: ANION GAP 4 mmol/L (5-15); CALCIUM 7.9 mg/dL (8.5-10.1); CHLORIDE 100 mmol/L (98-107); CREATININE 0.67 mg/dL (0.55-1.02)
[2018-08-09] MEDS: CARVEDILOL 6.25 MG TABLET PO SCH ×2 (06:05→17:22)
[2018-08-09] MEDS: INSULIN LISPRO 100 UNITS/ML, PEN SQ-INSULIN SCH ×3 (06:40→17:25)
[2018-08-09 06:56] VITALS: BP 137/62
[2018-08-09 09:34] VITALS: BP 131/75
[2018-08-09] MEDS: FAMOTIDINE 20 MG TABLET PO SCH (09:39)
[2018-08-09] MEDS: FUROSEMIDE 40 MG TABLET PO SCH (09:39)
[2018-08-09] MEDS: AMLODIPINE 5 MG TABLET PO SCH (09:39)
[2018-08-09] MEDS: LISINOPRIL 20 MG TABLET PO SCH (09:39)
[2018-08-09] MEDS: CITALOPRAM 20 MG TABLET PO SCH (09:39)
[2018-08-09] MEDS: LEVETIRACETAM 500 MG TABLET PO SCH (09:40)
[2018-08-09] MEDS: ENOXAPARIN 40 MG/0.4 ML SQ SCH (09:40)
[2018-08-09] MEDS: QUETIAPINE 25MG TABLET PO SCH (09:40)
[2018-08-09] MEDS: CEFTRIAXONE PMX 2GM/50ML 50 ML IV SCH ×2 (09:45→09:48)
[2018-08-09] MEDS: SODIUM CHLORIDE FLUSH 10ML SYR IVF SCH (09:48)
[2018-08-09] MEDS ORDERED: ONDANSETRON 2MG/ML, 2ML IVPush PRN (10:00)
[2018-08-09] MEDS ORDERED: LISI-170 PO (11:10)
[2018-08-09] MEDS ORDERED: AZIT500T PO (11:10)
[2018-08-09] MEDS ORDERED: TRAM50TA2 PO (11:10)
[2018-08-09] MEDS ORDERED: CEFD300C37 PO (11:10)
[2018-08-09] MEDS ORDERED: AMLO-150 PO (11:10)
[2018-08-09] MEDS ORDERED: ACET500T71 PO (11:10)
[2018-08-09] MEDS ORDERED: POLY17PO5 PO (11:10)
[2018-08-09] MEDS ORDERED: METF500T17 PO (11:10)
[2018-08-09] MEDS ORDERED: ONDA4TAB13 SL (11:10)
[2018-08-09] MEDS ORDERED: CARV6.2512 PO (11:10)
[2018-08-09] MEDS ORDERED: POTA20TA6 PO (14:00)
[2018-08-09] MEDS ORDERED: IPRA3AMP30 NPPB (14:01)
[2018-08-09 14:26] VITALS: BP 113/62
[2018-08-09 18:49] VITALS: BP 125/65
== END 2018-08-09 19:19 | DRG 870 ==
LOC: MERGE 15:41 → ED 16:32 → EDIP 16:33 → ED 17:04 → SUATTDRO 17:16 → CCU 19:55 → 4NOR 08-07 12:04
PROVIDERS: ADMIT Internal Medicine; ATTEND Internal Medicine
PROC: 0BH17EZ Insertion of Endotracheal Airway into Trachea, Via Natural or Artificial Opening (ICD-10-PCS; 2018-07-26)
PROC: 009U3ZX Drainage of Spinal Canal, Percutaneous Approach, Diagnostic (ICD-10-PCS; 2018-07-26)
PROC: 0T9B70Z Drainage of Bladder with Drainage Device, Via Natural or Artificial Opening (ICD-10-PCS; 2018-07-26)
PROC: 4A143B0 Monitoring of Venous Pressure, Central, Percutaneous Approach (ICD-10-PCS; 2018-07-28)
PROC: 5A1955Z Respiratory Ventilation, Greater than 96 Consecutive Hours (ICD-10-PCS; principal; 2018-08-01)
PROC: 0BP1XDZ Removal of Intraluminal Device from Trachea, External Approach (ICD-10-PCS; 2018-08-01)
PROC: 0BH17EZ Insertion of Endotracheal Airway into Trachea, Via Natural or Artificial Opening (ICD-10-PCS; 2018-08-01)
DX: A40.9 Streptococcal sepsis, unspecified (principal); J13 Pneumonia due to Streptococcus pneumoniae; I50.33 Acute on chronic diastolic (congestive) heart failure; J96.21 Acute and chronic respiratory failure with hypoxia; G93.49 Other encephalopathy; Z99.11 Dependence on respirator [ventilator] status; I47.2 Ventricular tachycardia; J44.0 Chronic obstructive pulmonary disease with (acute) lower respiratory infection; J98.11 Atelectasis; D69.6 Thrombocytopenia, unspecified; E11.51 Type 2 diabetes mellitus with diabetic peripheral angiopathy without gangrene; E78.5 Hyperlipidemia, unspecified; G40.909 Epilepsy, unspecified, not intractable, without status epilepticus; I11.0 Hypertensive heart disease with heart failure; I25.10 Atherosclerotic heart disease of native coronary artery without angina pectoris; I48.2 Chronic atrial fibrillation; I65.23 Occlusion and stenosis of bilateral carotid arteries; K74.60 Unspecified cirrhosis of liver; R13.10 Dysphagia, unspecified; Z51.5 Encounter for palliative care; Z79.01 Long term (current) use of anticoagulants; Z86.73 Personal history of transient ischemic attack (TIA), and cerebral infarction without residual deficits; Z87.891 Personal history of nicotine dependence; Z91.19 Patient's noncompliance with other medical treatment and regimen; Z99.81 Dependence on supplemental oxygen
CPT/HCPCS: 31500; 36415; 36600; 70450; 70496; 70498; 70551; 71045; 74018; 80047; 80048; 80053; 80076; 81001; 82330; 82803; 82945; 82962; 83605; 83735; 84100; 84157; 84478; 84484; 85025; 85027; 85610; 85651; 85730; 86140; 87040; 87070; 87081; 87102; 87184; 87205; 87206; 87210; 87252; 87532; 87899; 89051; 93005; 93306; 94002; 94003; 94150; 94640; 95819; 96365; 96375; 99291; G0378; J0133; J0610; J0696; J1100; J1650; J1953; J2250; J2405; J2704; J3010; J3370; J3480; J7060; J7620; P9047; Q9967; J0330; J0360; J1815; J1940; J3490; J7030; J7040; J7050